=== PATIENT | female | born 1975 | race Two or more races ===

== ENCOUNTER 2019-02-03 10:21 | Emergency (ER) | payer SELFPAY ==
[~2019-02-03] VITALS: Ht 167.6 cm; Wt 69.4 kg
[2019-02-03] MEDS ORDERED: IV NORMAL SALINE 1000ML BAG 1,000 ML IV SCH (10:57)
[2019-02-03] MEDS ORDERED: ONDANSETRON PF 4 MG/2 ML VIAL. IV ONE (11:00)
[2019-02-03 11:18] LABS: BASO % 1 % (0-3); EOS # 0.1 x10^3/uL (0.0-0.7); EOS % 1 % (0-3); HEMATOCRIT 41.1 % (36.0-47.0); HEMOGLOBIN 13.9 g/dL (12.0-15.5); LYMPH # 1.3 x10^3/uL (1.0-4.8); LYMPH % 22 % (24-48); MEAN CORPUSCULAR HEMOGLOBIN 33 pg (25-35); MEAN CORPUSCULAR HGB CONC 34 g/dL (31-37); MEAN CORPUSCULAR VOLUME 96 fL (79-100); MONO # 0.3 x10^3/uL (0.0-1.1); MONO % 5 % (0-9); NEUT % 71 % (31-73); PLATELET COUNT 220 x10^3/uL (140-400); RED BLOOD COUNT 4.29 x10^6/uL (3.50-5.40); RED CELL DISTRIBUTION WIDTH 13.2 % (11.5-14.5); WHITE BLOOD COUNT 5.6 x10^3/uL (4.0-11.0)
[2019-02-03 11:31] LABS: BILIRUBIN,URINE NEGATIVE (NEG); CLARITY,URINE CLEAR; COLOR,URINE YELLOW; NITRITE,URINE NEGATIVE (NEG); PH,URINE 5.5; PROTEIN,URINE NEGATIVE (NEG-TRACE); UROBILINOGEN,URINE 0.2 mg/dL (0.2 mg/dL)
[2019-02-03 11:36] LABS: CALCIUM 8.9 mg/dL (8.5-10.1); CREATININE 0.5 mg/dL (0.6-1.0); GFR 134.7
[2019-02-03 11:39] LABS: U PREG PATIENT NEGATIVE (NEG)
[2019-02-03 11:43] LABS: ALBUMIN 3.6 g/dL (3.4-5.0); ALBUMIN/GLOBULIN RATIO 0.9 (1.0-1.7); TOTAL BILIRUBIN 0.5 mg/dL (0.2-1.0); TOTAL PROTEIN 7.7 g/dL (6.4-8.2)
[2019-02-03] MEDS ORDERED: KETOROLAC 30 MG/ML VIAL. IV ONE (11:45)
[2019-02-03 11:56] LABS: SQUAMOUS EPITHELIAL CELL,UR MANY /LPF
[2019-02-03 11:57] LABS: BACTERIA,URINE MODERATE /HPF (0-FEW)
[2019-02-03] MEDS ORDERED: CONTRAST GIVEN. MC PRN (12:00)
[2019-02-03] MEDS ORDERED: IOHEXOL 300 MG/ML 100ML VIAL. IV ONE (12:00)
--- NOTE | 2019-02-03 12:19 | RAD ---
Examination: CT of the abdomen pelvis with IV contrast HISTORY: History of left upper quadrant abdominal pain COMPARISON: None available Technique: Axial CT images of the abdomen is performed with IV contrast and coronal sagittal reformats are performed Exposure: One or more of the following individualized dose reduction techniques were utilized for this examination: 1. Automated exposure control 2. Adjustment of the mA and/or kV according to patient size 3. Use of iterative reconstruction technique FINDINGS: The bibasilar lungs are clear. No evidence of free air identified in the abdomen. The visualized liver, spleen, adrenals grossly appears unremarkable. The gallbladder is mildly distended. The stomach is mildly distended. The visualized pancreas grossly appears unremarkable. The small bowel is nondilated. The appendix is normal. Feces and gas noted in the colon Multiple sigmoid colon diverticulosis. The urinary bladder is mildly distended. Intrauterine contraceptive device is identified. The bilateral kidneys enhance symmetrically. Punctate 2 mm calculus identified in the right kidney. No evidence of hydronephrosis. No evidence of lytic bony destructive lesion. IMPRESSION: 1. Punctate 2 mm calculus right kidney. No evidence of hydronephrosis. Electronically signed by: Corbin Elliott MD (02/03/2019 12:17 PM) [facility]
[2019-02-03 12:50] VITALS: BP 11/62
[2019-02-03] MEDS ORDERED: ONDA4TAB7 PO (13:12)
[2019-02-03] MEDS ORDERED: NAPR-683 PO (13:12)
--- NOTE | 2019-02-03 13:12 | PHYS DOC ---
Past Medical History Past Medical History: No Pertinent History Past Surgical History: Alcohol Use: None Drug Use: None Adult General Chief Complaint Chief Complaint: ABDOMINAL PAIN HPI HPI Patient is a 43 year old Maced[place] speaking female who presents with complaining of nausea and vomiting and abdominal pain. Patient complaining of left upper quadrant pain for 8 days with episodes of nausea and vomiting and diarrhea that getting worse since yesterday. Patient states she had 2 episodes of diarrhea today and one episode of vomiting yesterday with nausea today. 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 Review of Systems Review of Systems Constitutional: Denies fever or chills [] Eyes: Denies change in visual acuity, redness, or eye pain [] HENT: Denies nasal congestion or sore throat [] Respiratory: Denies cough or shortness of breath [] Cardiovascular: No additional information not addressed in HPI [] GI: Reports abdominal pain, nausea, vomiting, diarrhea [] : Denies dysuria or hematuria [] Musculoskeletal: Denies back pain or joint pain [] Integument: Denies rash or skin lesions [] Neurologic: Denies headache, focal weakness or sensory changes [] Endocrine: Denies polyuria or polydipsia [] All other systems were reviewed and found to be within normal limits, except as documented in this note. Current Medications Current Medications Current Medications Medications (Trade) Dose Ordered Sig/Aron Start Time Stop Time Status Last Admin Dose Admin Info (CONTRAST GIVEN -- Rx MONITORING) 1 each PRN DAILY PRN 02/03/19 12:00 02/03/19 13:23 DC Iohexol (Omnipaque 300 Mg/ml) 75 ml 1X ONCE 02/03/19 12:00 02/03/19 12:01 DC 02/03/19 11:58 75 ML Ketorolac Tromethamine (Toradol 30mg Vial) 30 mg 1X ONCE 02/03/19 11:45 02/03/19 11:46 DC 02/03/19 11:47 30 MG Ondansetron HCl (Zofran) 4 mg 1X ONCE 02/03/19 11:00 02/03/19 11:02 DC 02/03/19 11:08 4 MG Sodium Chloride 1,000 ml @ 1,000 mls/hr Q1H 02/03/19 10:57 02/03/19 11:56 DC 02/03/19 11:09 1,000 MLS/HR Allergies Allergies Allergies Coded Allergies Type Severity Reaction Last Updated Verified No Known Drug Allergies 08/11/15 No Physical Exam Physical Exam Constitutional: Well developed, well nourished, mild distress, non-toxic appearance. [] HENT: Normocephalic, atraumatic, oropharynx moist, no oral exudates, nose normal. [] Eyes: PERRLA, EOMI, conjunctiva normal, no discharge. [] Neck: Normal range of motion, no tenderness, supple, no stridor. [] Cardiovascular:Heart rate regular rhythm, no murmur [] Lungs & Thorax: Bilateral breath sounds clear to auscultation [] Abdomen: Bowel sounds normal, soft, no tenderness, no masses, no pulsatile masses. [] Skin: Warm, dry, no erythema, no rash. [] Back: No tenderness, no CVA tenderness. [] Extremities: No tenderness, no cyanosis, no clubbing, ROM intact, no edema. [] Neurologic: Alert and oriented X 3, normal motor function, normal sensory function, no focal deficits noted. [] Psychologic: Affect normal, judgement normal, mood normal. [] Current Patient Data Vital Signs Vital Signs Date Time Temp Pulse Resp B/P (MAP) Pulse Ox O2 Delivery O2 Flow Rate FiO2 02/03/19 12:50 64 16 11/62 (45) 99 Room Air 02/03/19 10:31 98.3 98.3 Lab Values Laboratory Tests Test 02/03/19 10:20 02/03/19 10:34 02/03/19 11:25 Urine Collection Type Unknown Urine Color Yellow Urine Clarity Clear Urine pH 5.5 Urine Specific Price 1.020 Urine Protein Negative mg/dL (NEG-TRACE) Urine Glucose (UA) Negative mg/dL (NEG) Urine Ketones (Stick) Negative mg/dL (NEG) Urine Blood Large (NEG) Urine Nitrite Negative (NEG) Urine Bilirubin Negative (NEG) Urine Urobilinogen Dipstick 0.2 mg/dL (0.2 mg/dL) Urine Leukocyte Esterase Trace (NEG) Urine RBC 3-5 /HPF (0-2) Urine WBC 1-4 /HPF (0-4) Urine Squamous Epithelial Cells Many /LPF Urine Bacteria Moderate /HPF (0-FEW) Urine Mucus Mod /LPF White Blood Count 5.6 x10^3/uL (4.0-11.0) Red Blood Count 4.29 x10^6/uL (3.50-5.40) Hemoglobin 13.9 g/dL (12.0-15.5) Hematocrit 41.1 % (36.0-47.0) Mean Corpuscular Volume 96 fL (79-100) Mean Corpuscular Hemoglobin 33 pg (25-35) Mean Corpuscular Hemoglobin Concent 34 g/dL (31-37) Red Cell Distribution Width 13.2 % (11.5-14.5) Platelet Count 220 x10^3/uL (140-400) Neutrophils (%) (Auto) 71 % (31-73) Lymphocytes (%) (Auto) 22 % (24-48) L Monocytes (%) (Auto) 5 % (0-9) Eosinophils (%) (Auto) 1 % (0-3) Basophils (%) (Auto) 1 % (0-3) Neutrophils # (Auto) 4.0 x10^3uL (1.8-7.7) Lymphocytes # (Auto) 1.3 x10^3/uL (1.0-4.8) Monocytes # (Auto) 0.3 x10^3/uL (0.0-1.1) Eosinophils # (Auto) 0.1 x10^3/uL (0.0-0.7) Basophils # (Auto) 0.0 x10^3/uL (0.0-0.2) Sodium Level 140 mmol/L (136-145) Potassium Level 4.0 mmol/L (3.5-5.1) Chloride Level 105 mmol/L (98-107) Carbon Dioxide Level 26 mmol/L (21-32) Anion Gap 9 (6-14) Blood Urea Nitrogen 14 mg/dL (7-20) Creatinine 0.5 mg/dL (0.6-1.0) L Estimated GFR (Cockcroft-Gault) 134.7 BUN/Creatinine Ratio 28 (6-20) H Glucose Level 97 mg/dL (70-99) Calcium Level 8.9 mg/dL (8.5-10.1) Total Bilirubin 0.5 mg/dL (0.2-1.0) Aspartate Amino Transferase (AST) 14 U/L (15-37) L Alanine Aminotransferase (ALT) 26 U/L (14-59) Alkaline Phosphatase 86 U/L (46-116) Creatine Kinase 69 U/L (26-192) Troponin I Quantitative < 0.017 ng/mL (0.000-0.055) Total Protein 7.7 g/dL (6.4-8.2) Albumin 3.6 g/dL (3.4-5.0) Albumin/Globulin Ratio 0.9 (1.0-1.7) L Lipase 77 U/L (73-393) Urine Test Negative (NEG) Laboratory Tests 02/03/19 10:34 Laboratory Tests 02/03/19 10:34 Microbiology 02/03/19 Urine Culture - Final, Complete 02/03/19 Urine Culture Result 1 (DNEISE) - Final, Complete 02/03/19 Urine Culture Result 2 (DENISE) - Final, Complete EKG EKG [] Radiology/Procedures Radiology/Procedures [facility] [address] [place] [address] IMAGING REPORT Signed PATIENT: STARR WORLEY ACCOUNT: [id number] : 1975 LOCATION: ER AGE: 43 SEX: F EXAM STATUS: REG ER ORD. PHYSICIAN: LARRY CATHERINE MD REASON: left upper quadrant PAIN; OMNI 300, 75ML PROCEDURE: CT ABD PELV W/ IV CONTRST ONLY Examination: CT of the abdomen pelvis with IV contrast HISTORY: History of left upper quadrant abdominal pain COMPARISON: None available Technique: Axial CT images of the abdomen is performed with IV contrast and coronal sagittal reformats are performed Exposure: One or more of the following individualized dose reduction techniques were utilized for this examination: 1. Automated exposure control 2. Adjustment of the mA and/or kV according to patient size 3. Use of iterative reconstruction technique FINDINGS: The bibasilar lungs are clear. No evidence of free air identified in the abdomen. The visualized liver, spleen, adrenals grossly appears unremarkable. The gallbladder is mildly distended. The stomach is mildly distended. The visualized pancreas grossly appears unremarkable. The small bowel is nondilated. The appendix is normal. Feces and gas noted in the colon Multiple sigmoid colon diverticulosis. The urinary bladder is mildly distended. Intrauterine contraceptive device is identified. The bilateral kidneys enhance symmetrically. Punctate 2 mm calculus identified in the right kidney. No evidence of hydronephrosis. No evidence of lytic bony destructive lesion. IMPRESSION: 1. Punctate 2 mm calculus right kidney. No evidence of hydronephrosis. Electronically signed by: Corbin Elliott MD (02/03/2019 12:17 PM) [facility] DICTATED and SIGNED BY: CORBIN ELLIOTT MD DATE: 02/03/19 1217 Course & Med Decision Making Course & Med Decision Making Pertinent Labs and Imaging studies reviewed. (See chart for details) Evaluation of patient in ER showed 43-year-old female patient with complaining of episodes of nausea vomiting diarrhea and left upper quadrant pain for 8 days. Patient had unremarkable physical exam and ct abdomen and pelvis except for accidental fall of right nephrolithiasis patient felt better with treatment in er and tolerated oral intake. Dragon Disclaimer Dragon Disclaimer This electronic medical record was generated, in whole or in part, using a voice recognition dictation system. Departure Departure Impression: Primary Impression: Gastroenteritis Additional Impression: Abdominal pain Disposition: HOME, SELF-CARE (at 1310) Condition: IMPROVED Referrals: UNKNOWN PCP NAME (PCP) Patient Instructions: Viral Gastroenteritis Additional Instructions: Drink plenty of liquids Follow-up with your primary care physician in 3-5 days Return to ER if not getting better Scripts Ondansetron Hcl (ZOFRAN) 4 Mg Tablet 1 TAB PO PRN Q6-8HRS for nausea, #12 TAB Prov: LARRY CATHERINE MD 02/03/19 Naproxen (NAPROSYN) 500 Mg Tablet 1 TAB PO BID for pain, #20 TAB Prov: LARRY CATHERINE MD 02/03/19 Problem Qualifiers Additional Impression: Abdominal pain Abdominal location: left upper quadrant Qualified Codes: R10.12 - Left upper quadrant pain LARRY CATHERINE MD February 03, 2019 13:12
== END 2019-02-03 13:23 | disposition home or self-care (01) ==
LOC: ER 10:21
DX: K52.89 Other specified noninfective gastroenteritis and colitis (principal); N20.0 Calculus of kidney; K57.32 Diverticulitis of large intestine without perforation or abscess without bleeding; Z98.890 Other specified postprocedural states
CPT/HCPCS: 36415; 74177; 80053; 81001; 81025; 82550; 83690; 84484; 85025; 87086; 96361; 96374; 96375; 99285; J1885; J2405; J7030; Q9967